=== PATIENT | male | born 1945 | race Caucasian/White ===

== ENCOUNTER 2024-01-19 13:42 | Emergency (ER) | payer MEDICARE, SELFPAY ==
[2024-01-19 13:37] VITALS: PULSE 0
--- NOTE | 2024-01-19 13:57 | ED.CPR ---
HPI - CPR General Chief Complaint: Cardiac Arrest/CPR Stated Complaint: cardiac arrest Time Seen by Provider: 01/19/24 13:57 History of Present Illness HPI narrative: Patient is a 78-year-old male here in cardiac arrest. Patient reportedly had gone to buddhism this morning, had been feeling well, he had been out in the garage bringing in groceries, last saw him 50 minutes prior, he had not been in the house she went into the garage and he was lying on the floor of the garage. EMS was called. On EMS arrival they noted a wound to the back of his head. He was initially in PEA arrest and CPR was initiated. They gave him 4 rounds of epinephrine EN route to the hospital. They did notice that he transition to a VFib arrest, shock was administered EN route as well as amiodarone 300 mg, last epinephrine given just prior to rolling into the emergency department. They noted that the last pulse check he was in PEA arrest. Expected downtime prior to arrival to the emergency department approximately 45 minute. Related Data Allergies Allergy/AdvReac Type Severity Reaction Status Date / Time No Known Allergies Allergy Unverified 11/05/17 18:55 Review of Systems Review of Systems: ROS unobtainable: Yes unobtainable due to medical condition [facility] Family History Family History (Updated 11/19/17 @ 10:45 by DOCTOR UNKNOWN) Mother Diabetes mellitus Social History Social History Smoking status: Current every day smoker Alcohol intake: never Exam Narrative: GENERAL: unresponsive HEAD: Blood present to the back of the head, no palpable skull deformity. EYES: pupils 5 mm, fixed, dilated ENT: 7.[address] NECK: Supple. C-collar in place CHEST: no spontaneous respirations, ventilations assisted by bagging, bilateral breath sounds appreciated. HEART: Pulseless ABDOMEN: no obvious trauma EXTREMITIES: he has bilateral chronic venous stasis changes in his lower extremities as well as edema. He has children's diapers in place over his weeping wounds. SKIN: pale, venous stasis changes as described above NEURO: no purposeful movements, unresponsive. Course Course Emergency Course: Patient seen evaluated on EMS arrival. CPR in process with Issac device in place. Intubated in the field. He was initially a PA arrest with obvious head trauma, had been a shockable rhythm, received 1 shock as well as amiodarone EN route. CPR continued and patient placed on our monitor. He continued to be in PE a while here in the department. Multiple rounds of epinephrine given as well as bicarb. Patient had no return of spontaneous pulse. ACLS protocol followed. Patient's family at bedside. Blood glucose normal. On pulse check bedside ultrasound performed, patient had a small amount of cardiac activity which is non perfusing with visible clots present in the ventricles seen on ultrasound which rapidly became cardiac standstill. Suspect this initial small amount of cardiac activity initially was due to recent epinephrine administration. At this point patient has had a downtime of approximately 1 hour with no regain of pulse. TOD called by myself at 1:54 PM. son was at bedside, comforted by staff. [employer] was contacted, per Anabel at microfilm operator's office, they will have microfilm operator sign certificate. Patient is not a microfilm operator's case. MDM - Cardiac Arrest/CPR Lab Data Labs: Lab Results 01/19/24 Range/Units 13:47 POC Capillary Glucose 159 H (65-105) mg/dl Discharge Plan Discharge Clinical Impression: Cardiac arrest Patient Disposition: Condition: Prescriptions: No Action lisinopril 10 mg tablet 10 mg PO DAILY Qty: 90 1RF rosuvastatin [Crestor] 20 mg tablet 20 mg PO DAILY Qty: 90 1RF metformin 1,000 mg tablet 1,000 mg PO BID Qty: 180 1RF Follow-up/Referrals: Liz,MD David [Non-Staff] - Time of Disposition: 15:04
[2024-01-19 14:04] LABS: Glucose Point of Care 159 mg/dl (65-105)
--- NOTE | 2024-01-19 14:13 | PC.NURSE ---
[place] [facility] [place] Per Anabel, cattle manager will sign certificate and patient is able to be released to home.
--- NOTE | 2024-01-19 14:39 | PC.NURSE ---
Alfreda at [facility] notified patient . Reports they will have a screener review patient chart. Due to patient potentially being a candidate for donation they request patient be transported to our morgue until we hear back from them. Ref# [id number]
--- NOTE | 2024-01-19 15:20 | PC.NURSE ---
see Code Sheet
--- NOTE | 2024-01-19 15:27 | PC.NURSE ---
Pt arrived in cervical collar with CPR in progress per ACLS protocol and via Issac device. Assisted ventilation via ETT #7.5 24 at lip. Laceration to posterior head note. Per pt pt found in garage lying on floor with bleeding from posterior head and no pulse. called 911 at which time life saving measures started. Pt cardiac rhythm upon arrival PEA. No spontaneous resp noted. ACLS protocol continued, Dr. Ardon at bedside. Ultrasound of pt heart performed resulted in no active cardiac output. Time of [address] Kay. & son at bedside. Pts ministered notified by family arrived to comfort family. Waiting on pts children at this time. [employer] [facility] notified per Barbie Bryant Charge Nurse.
--- NOTE | 2024-01-19 17:06 | PC.NURSE ---
Anabel from [facility] [place] office at bedside, assessed pt, took picture [facility] [place]. Family agreeable.
--- NOTE | 2024-01-19 17:57 | PC.NURSE ---
MTS made aware that [place] was being [place] [facility] [place].
--- NOTE | 2024-01-19 18:04 | PC.NURSE ---
ETT & cervical removed. Pt shrouded & tagged per protocol for Peter
== END 2024-01-19 18:34 | disposition expired ==
PROVIDERS: Emergency Provider Student in an Organized Health Care Education/Training Program
DX: I46.9 Cardiac arrest, cause unspecified (principal); S01.01XA Laceration without foreign body of scalp, initial encounter; F17.200 Nicotine dependence, unspecified, uncomplicated; X58.XXXA Exposure to other specified factors, initial encounter
CPT/HCPCS: 82948; 92950; 99285; J0171